=== PATIENT | male | born 1985 | race Caucasian/White ===

== ENCOUNTER → 2023-04-18 11:50 | Outpatient (CLI) | payer OTHER, SELFPAY ==
--- NOTE | 2023-04-18 11:56 | DI.MRI.S_ITS ---
PROCEDURE: MR ANKLE LT WO CON INDICATIONS: Pain in left ankle and joints of left foot TECHNIQUE: Noncontrast sagittal T1 spin echo and T2 fast spin echo with fat saturation, axial proton density fast spin echo and T2 fast spin echo with fat saturation, coronal T1 spin echo and T2 fast spin echo with fat saturation through the ankle/hindfoot. COMPARISON: None. FINDINGS: Image quality: Excellent. Bones and joints: Significant marrow edema involving mid to distal portion of the calcaneus and adjacent inferior weight-bearing portion of talus is seen without discrete fracture line. Mild edema is also noted involving inferior aspect of navicular bone without discrete fracture line. No osteochondral injuries of talar dome. Mild the marrow edema is also seen involving distal portion of medial and lateral malleoli without discrete fracture line. Moderate tibiotalar joint effusion is seen, no gross intra-articular loose bodies. Medial structures: The posterior tibialis, flexor digitorum longus, and flexor hallucis longus tendons are thickened with fluid distending tendon sheath at the level of mid to distal talus and talonavicular joint. The posterior tibial neurovascular bundle appears normal within the tarsal tunnel, without extrinsic mass effect. Sprain/low-grade intrasubstance partial-thickness tear involving deltoid ligament is seen. The spring ligament is also thickened suggestive of ligament sprain. Lateral structures: The anterior talofibular ligament is intact. The calcaneofibular, and posterior talofibular ligaments are thickened with intrasubstance T2 hyperintense signal. More superiorly there is moderate grade partial-thickness tear involving anterior tibial fibular ligament. The posterior tibial fibular ligament is thickened. The tibiofibular syndesmosis is normal in width at 2 mm or less. The peroneus longus and brevis tendons demonstrate normal location and morphology. Small amount of fluid distending peroneus tendon sheath is seen. The sinus tarsi demonstrates normal fatty signal, without edema, fibrosis, or cyst formation. Visualized sinus tarsi components (cervical ligament, interosseous talocalcaneal ligament, roots of the inferior extensor retinaculum) appear normal. The calcaneonavicular and calcaneocuboid components of the bifurcate ligament appear intact. The dorsal calcaneocuboid ligament appears intact. Anterior structures: The tibialis anterior, extensor hallucis longus, and extensor digitorum longus tendons appear intact. The dorsal talonavicular ligament appears intact. Posterior and plantar structures: Achilles tendon is intact. Medial and lateral bands of the plantar fascia are of normal thickness. No abductor digiti quinti muscle atrophy to suggest Moreau neuropathy. IMPRESSION: 1. Significant bony contusion involving inferior portion of talus and superior portion of calcaneus adjacent to subtalar joint. Mild bony contusion also seen involving tip of medial and lateral malleoli. No acute fracture or dislocation. Moderate tibiotalar joint effusion, no gross loose bodies. 2. Moderate grade tenosynovitis involving flexor tendons. Low-grade tenosynovitis involving peroneus tendons. 3. Low-grade sprain/intrasubstance partial-thickness tear involving deltoid ligament. Low-grade sprain involving the spring ligament. 4. Low to moderate grade intrasubstance partial-thickness tear involving calcaneofibular ligament and posterior talofibular ligament. Moderate grade partial-thickness tear involving anterior tibial fibular ligament. Low-grade sprain involving posterior tibial fibular ligament. Dictated by: Zelalem Leyva M.D. on 04/18/2023 at 15:36 Approved by: Zelalem Leyva M.D. on 04/18/2023 at 15:43
== END ==
PROVIDERS: PCP Podiatrist; Referring Provider Podiatrist; Visit Provider Podiatrist
DX: S90.02XA Contusion of left ankle, initial encounter (principal); M65.872 Other synovitis and tenosynovitis, left ankle and foot; S93.422A Sprain of deltoid ligament of left ankle, initial encounter; S93.492A Sprain of other ligament of left ankle, initial encounter; S93.412A Sprain of calcaneofibular ligament of left ankle, initial encounter; S93.432A Sprain of tibiofibular ligament of left ankle, initial encounter; M25.472 Effusion, left ankle; M25.572 Pain in left ankle and joints of left foot
CPT/HCPCS: 73721